=== PATIENT | female | born 1995 | race Caucasian/White ===

== ENCOUNTER 2022-05-02 13:46 | Emergency (ER) | payer OTHER, SELFPAY ==
[2022-05-02 13:58] VITALS: BP 116/76; PULSE 71; RESP 18; TEMP 36.8; O2SAT 100
--- NOTE | 2022-05-02 14:31 | ED.EAR ---
HPI - Ear Problem General Chief complaint: Ear Stated complaint: Lt Ear Irritation Source: patient Mode of arrival: ambulatory Limitations: no limitations History of Present Illness HPI Narrative: This is a 27 year old female that has had ringing of her ears more in the left and light headedness with nausea, Patient denies passing out and states her ear is also itching . Patient states that she has this rash like bites behind her right ear, on her lower back and ankle her knee and behind her knees. Patient states she looked at the end of her bed for bedbugs and she does not believe she saw anything but she is not for sure and would like to be treated for bed bugs just in case. MD Complaint: ear pain Location: bilateral Related Data Home Medications Medication Instructions Recorded Confirmed erenumab-aooe 140 mg/mL 140 mg subcut MONTHLY 05/02/22 05/02/22 subcutaneous auto-injector (Aimovig Autoinjector) levonorgestrel-ethinyl estradiol 1 tablet PO DAILY 05/02/22 05/02/22 0.1 mg-20 mcg tablet (Vienva) nortriptyline 25 mg capsule 25 mg PO HS 05/02/22 05/02/22 sertraline 100 mg tablet 100 mg PO HS 05/02/22 05/02/22 Allergies Allergy/AdvReac Type Severity Reaction Status Date / Time No Known Allergies Allergy Verified 05/02/22 13:53 Review of Systems Review of Systems: rash, ringing of ears, nausea, dizziness, ear pain and itching All systems reviewed & are unremarkable except as noted in HPI and below PMFSH Comments At time as signature, I have reviewed and agree with nursing past medical, social, surgical and family history. Please see nursing chart for further information. There is no relevant family history pertinent to the presenting complaint. Exam Narrative: GENERAL:Well-appearing, well-nourished, and in no acute distress. HEAD:Normocephalic, EYES: PERRLA ENT: Nares clear, no rhinorrhea or epistaxis. Mucous membranes moist. Right ear dry with some erythema TM pale clear fluid noted CHEST: No respiratory distress. HEART: Normal peripheral pulses. ABDOMEN: Soft, nontender, nondistended, EXTREMITIES: Normal range of motion. No edema. SKIN: Warm, dry, no rash. [place] pinpoint bite petersen noted on lower back right side behind the left ear behind her knee and bilateral ankles bilateral arms NEURO: No focal deficits. Alert and oriented x3. Course Course Level of Care: Express Care Visit Vital Signs Vital signs: Vital Signs Temperature 98.2 F 05/02/22 13:58 Pulse Rate 71 05/02/22 13:58 Respiratory Rate 18 05/02/22 13:58 Blood Pressure 116/76 05/02/22 13:58 Pulse Oximetry 100 05/02/22 13:58 Oxygen Delivery Room Air 05/02/22 13:58 Temperature 98.2 F 05/02/22 13:58 Pulse Rate 71 05/02/22 13:58 Respiratory Rate 18 05/02/22 13:58 Blood Pressure 116/76 05/02/22 13:58 Pulse Oximetry 100 05/02/22 13:58 Oxygen Delivery Room Air 05/02/22 13:58 Medical Decision Making Medical Records Medical records reviewed: Yes I reviewed the external patient's medical records. Vital Signs Vital Signs: Vital Signs Temperature 98.2 F 05/02/22 13:58 Pulse Rate 71 05/02/22 13:58 Respiratory Rate 18 05/02/22 13:58 Blood Pressure 116/76 05/02/22 13:58 Pulse Oximetry 100 05/02/22 13:58 Oxygen Delivery Room Air 05/02/22 13:58 Temperature 98.2 F 05/02/22 13:58 Pulse Rate 71 05/02/22 13:58 Respiratory Rate 18 05/02/22 13:58 Blood Pressure 116/76 05/02/22 13:58 Pulse Oximetry 100 05/02/22 13:58 Oxygen Delivery Room Air 05/02/22 13:58 Discharge Plan Discharge Clinical Impression: Otitis externa, Infestation by cimex lectularius, Bilateral tinnitus, Nausea & vomiting Patient Disposition: Home, Self-Care Condition: Stable Instructions: Antibiotic Form, Swimmer's Ear (AC), Insect Bite or Sting (ED), Bed Bugs (ED), Tinnitus (ED) Prescriptions: New ondansetron 4 mg tablet,disintegrating 4 mg PO Q8H PRN (R
== END 2022-05-02 14:48 | disposition home or self-care (01) ==
PROVIDERS: Emergency Provider Nurse Practitioner Family; PCP Family Medicine
DX: H60.91 Unspecified otitis externa, right ear (principal); S30.860A Insect bite (nonvenomous) of lower back and pelvis, initial encounter; S00.461A Insect bite (nonvenomous) of right ear, initial encounter; S80.269A Insect bite (nonvenomous), unspecified knee, initial encounter; S90.562A Insect bite (nonvenomous), left ankle, initial encounter; S90.561A Insect bite (nonvenomous), right ankle, initial encounter; S40.862A Insect bite (nonvenomous) of left upper arm, initial encounter; S40.861A Insect bite (nonvenomous) of right upper arm, initial encounter; W57.XXXA Bitten or stung by nonvenomous insect and other nonvenomous arthropods, initial encounter; H93.13 Tinnitus, bilateral; R11.2 Nausea with vomiting, unspecified; Z86.16 Personal history of COVID-19; F41.9 Anxiety disorder, unspecified; F32.A Depression, unspecified
CPT/HCPCS: 99213; G0463

== ENCOUNTER 2023-06-16 14:56 | Emergency (ER) | payer OTHER, SELFPAY ==
[2023-06-16 15:01] VITALS: BP 116/67; PULSE 99; RESP 16; TEMP 36.4; O2SAT 100
--- NOTE | 2023-06-16 15:19 | ED.URI ---
HPI - URI/Sore Throat General Chief Complaint: Upper Respiratory Infection Stated Complaint: Cough Time Seen by Provider: 06/16/23 15:10 Source: patient Mode of arrival: ambulatory Limitations: no limitations History of Present Illness HPI Narrative: 28 yo F presents with c/o cough, PND for 5 days. prior to this pt has had sinus congestion, pressure. Takes zyrtec and flonase daily. Has been taking dayquil/nyquil cold and flu since cough started. Denies CP/SOB. All systems reviewed and negative except as noted above. Related Data Home Medications Medication Instructions Recorded Confirmed erenumab-aooe 140 mg/mL 140 mg subcut MONTHLY 05/02/22 06/16/23 subcutaneous auto-injector (Aimovig Autoinjector) sertraline 100 mg tablet 100 mg PO HS 05/02/22 06/16/23 levonorgestrel-ethinyl estradiol 1 tablet PO DAILY 06/16/23 06/16/23 0.1 mg-20 mcg tablet (Sronyx) rizatriptan 10 mg tablet 10 mg PO TID 06/16/23 06/16/23 Allergies Allergy/AdvReac Type Severity Reaction Status Date / Time No Known Allergies Allergy Verified 06/16/23 14:58 Review of Systems Review of Systems: CONSTITUTIONAL: Denies fever, chills, or sweats. EYES: Denies visual changes, redness, or discharge. ENT: reports rhinorrhea, congestion, postnasal drainage. Denies sore throat, or otalgia. CARDIOVASCULAR: Denies chest pain, palpitations, or edema. RESPIRATORY: reports cough. Denies dyspnea. GASTROINTESTINAL: Denies abdominal pain, nausea, vomiting, or diarrhea. GENITOURINARY: Denies dysuria or hematuria. SKIN: Denies rash or itching. MUSCULOSKELETAL: Denies back pain, joint pain, or myalgia. NEUROLOGIC: Denies headache, numbness, or weakness. PSYCHIATRIC: Denies anxiety or depression. All other systems reviewed are negative, except as documented in HPI. PMFSH Comments At time of signature, agree with nursing past medical, surgical, social and family history. There is no relevant family history pertinent to the presenting complaint. Exam Narrative: GENERAL: This is a well-nourished, well-developed patient, in no apparent distress. HEAD: normocephalic, atraumatic. EYES: PERRL. Sclera clear/white. Vision is grossly intact. EARS: External ears normal, auditory canals clear and without drainage, TMs normal without perforation. Hearing grossly intact. NOSE: External nose normal with no clear nasal drainage mild erythema to bilateral nares. THROAT: Mucous membranes moist, Postnasal drainage with mild erythema. No tonsillar swelling or exudates. NECK: Neck supple, non-tender without lymphadenopathy, masses or thyromegaly. CARDIOVASCULAR: Regular rate and rhythm without murmurs, gallops, or rubs. RESPIRATORY: Clear to auscultation. Breath sounds equal bilaterally. No wheezes, rales, or rhonchi. SKIN: warm, Dry, intact with no suspicious lesions or rash, good texture and turgor. NEURO: awake, alert, and oriented to person, place and time. There were no obvious focal neurologic abnormalities. EXTREMITIES: No joint tenderness, effusion, or edema noted. Course Course Level of Care: Express Care Visit Vital Signs Vital signs: Vital Signs Temperature 36.4 C L 06/16/23 15:01 Pulse Rate 99 06/16/23 15:01 Respiratory Rate 16 06/16/23 15:01 Blood Pressure 116/67 06/16/23 15:01 Pulse Oximetry 100 06/16/23 15:01 Oxygen Delivery Room Air 06/16/23 15:01 Temperature 36.4 C L 06/16/23 15:01 Pulse Rate 99 06/16/23 15:01 Respiratory Rate 16 06/16/23 15:01 Blood Pressure 116/67 06/16/23 15:01 Pulse Oximetry 100 06/16/23 15:01 Oxygen Delivery Room Air 06/16/23 15:01 Reviewed MDM - URI/Sore Throat MDM Narrative Medical decision making narrative: Patient is aware of diagnosis, understands and agrees to treatment plan. Anticipatory guidance given. Patient agrees to follow-up as directed and is aware of reasons to seek care at the emergency department. Portions of this record may have been creat
== END 2023-06-16 15:16 | disposition home or self-care (01) ==
PROVIDERS: Emergency Provider Nurse Practitioner Family; PCP Family Medicine
DX: J06.9 Acute upper respiratory infection, unspecified (principal); Z79.899 Other long term (current) drug therapy
CPT/HCPCS: 99213; G0463